=== PATIENT | female | born 1965 | race Caucasian/White ===

== ENCOUNTER 2019-03-24 06:28 | Day surgery (SDC) | payer MEDICAID ==
[~2019-03-24] VITALS: Ht 167.6 cm; Wt 84.1 kg
[~2019-03-24 06:28] MED LIST: SODIUM CHLORIDE 0.9% 1,000 ML IV ONE
[2019-03-24] MEDS ORDERED: BENZOCAINE 20% 50 MCG/SPRAY 57 GM TP ONE (06:29)
[2019-03-24] MEDS ORDERED: LIDOCAINE 4% 50 ML SOLUTION TP ONE (06:29)
[2019-03-24] MEDS ORDERED: ALBUTEROL SULFATE 2.5 MG/0.5 ML NEB SOLUTION NEB ONE (06:29)
[2019-03-24] MEDS ORDERED: LIDOCAINE 2% 30 ML JELLY TP ONE (06:29)
[2019-03-24] MEDS ORDERED: SODIUM CHLORIDE 0.9% 1,000 ML IV ONE (07:00)
[2019-03-24 07:26] LABS: GLUCOMETER DEV NAME(LOC) SDS.; GLUCOSE,POINT OF CARE 123 MG/DL (70-110)
[2019-03-24] MEDS ORDERED: GABA-529 PO (07:30)
[2019-03-24] MEDS ORDERED: ALBU8HFA IH (07:30)
[2019-03-24] MEDS ORDERED: FLUT16H NASAL (07:30)
[2019-03-24] MEDS ORDERED: BECL10.62 IH (07:30)
[2019-03-24] MEDS ORDERED: ESCI10TA PO (07:30)
[2019-03-24] MEDS ORDERED: OMEP20 PO (07:30)
[2019-03-24] MEDS ORDERED: METF-960 PO (07:30)
[2019-03-24] MEDS ORDERED: MONT10TA21 PO (07:30)
[2019-03-24] MEDS ORDERED: ATOR20TA86 PO (07:30)
[2019-03-24] MEDS ORDERED: MIDAZOLAM HCL 2 MG/2 ML VIAL ONE (07:37)
[2019-03-24] MEDS ORDERED: FentaNYL CITRATE-PF 100 MCG/2 ML VIAL ONE (07:37)
[2019-03-24] MEDS ORDERED: MethylPREDNISolone SOD SUCC 125 MG/2 ML VIAL IVP ONE (09:15)
[2019-03-24] MEDS ORDERED: MethylPREDNISolone SOD SUCC 125 MG/2 ML VIAL ONE (09:22)
[2019-03-24] MEDS ORDERED: OXYGEN THERAPY IH SCH (20:00)
== END 2019-03-24 11:25 | disposition home or self-care (01) ==
LOC: SURGERY 06:28
PROVIDERS: ATTEND Internal Medicine Critical Care Medicine
DX: J38.4 Edema of larynx (principal); B37.0 Candidal stomatitis; J44.9 Chronic obstructive pulmonary disease, unspecified; E78.00 Pure hypercholesterolemia, unspecified; M19.90 Unspecified osteoarthritis, unspecified site; Z98.890 Other specified postprocedural states
CPT/HCPCS: 31623; 31624; 71045; 82962; 87015; 87070; 87077; 87101; 87186; 87205; 87206; 87220; 88108; 88312; J2250; J2930; J3010; J7030